=== PATIENT | male | born 1975 | race Caucasian/White ===

== ENCOUNTER 2023-11-15 10:10 | Emergency (ER) | payer OTHER ==
[~2023-11-15] VITALS: Ht 165.1 cm; Wt 74.8 kg
[2023-11-15 10:29] VITALS: BP_SYST 124; PULSE 86; RESP 16; TEMP 98.1; O2SAT 96
[2023-11-15 11:33] LABS: BASOPHILS % (AUTO) 0.3 % (0.0-2.0); EOSINOPHILS % (AUTO) 0.1 % (0.0-4.0); HEMATOCRIT 45.1 % (36-54); HEMOGLOBIN 15.5 g/dL (14.0-18.0); LYMPHOCYTES # (AUTO) 1.4 K/uL (1.0-5.5); LYMPHOCYTES % (AUTO) 9.8 % (20.5-51.5); MEAN CORPUSCULAR HEMOGLOBIN 29 pg (27-31); MEAN CORPUSCULAR HGB CONC 34 % (32-36); MEAN CORPUSCULAR VOLUME 84 fL (79.0-98.0); MONOCYTES # (AUTO) 0.5 K/uL (0.0-1.0); MONOCYTES % (AUTO) 3.6 % (1.7-9.3); NEUTROPHILS # (AUTO) 12.4 K/uL (1.8-7.7); NEUTROPHILS % (AUTO) 86.2 % (40.0-70.0); PLATELET COUNT (AUTO) 278 K/uL (130-430); RED BLOOD CELL COUNT(AUTO) 5.34 MIL/uL (4.2-6.2); RED CELL DISTRIBUTION WIDTH 13.3 % (9.0-15.0); WHITE BLOOD COUNT (AUTO) 14.4 K/uL (4.8-10.8)
[2023-11-15] MEDS: ONDANSETRON HCL 4 MG/2 ML VIAL IVP ONE (11:54)
[2023-11-15] MEDS: NACL 0.9% 1,000 ML IV ONE (11:54)
[2023-11-15] MEDS: KETOROLAC TROMETHAMINE 15 MG VIAL IVP ONE (11:54)
[2023-11-15 12:01] LABS: ALBUMIN 4.9 g/dL (3.4-4.8); BILIRUBIN,DIRECT 0.1 mg/dL (0.0-0.3); CALCIUM 10.1 mg/dL (8.4-11.0); CREATININE 0.87 mg/dL (0.55-1.30); POTASSIUM 3.8 mmol/L (3.5-5.1); TOTAL BILIRUBIN 0.6 mg/dL (0.0-1.0); TOTAL PROTEIN, SERUM 9.4 g/dL (6.4-8.3)
[2023-11-15] MEDS ORDERED: ONDA-8 TL (13:54)
[2023-11-15 13:59] VITALS: BP_SYST 136; PULSE 78; RESP 16; TEMP 98.1; O2SAT 96
== END 2023-11-15 13:59 | disposition home or self-care (01) ==
LOC: SED 10:10
DX: R10.13 Epigastric pain (principal); R11.2 Nausea with vomiting, unspecified
CPT/HCPCS: 99285; 96374; 76705; 96361; 96375; 80076; 80048; 83690; 85025; 36415; J1885; J2405; J7030